=== PATIENT | female | born 1960 | race Caucasian/White ===

== ENCOUNTER 2022-05-25 23:18 | Observation (INO) ==
[2022-05-25] MEDS ORDERED: fentaNYL citrate 100 MCG/2 ML VIAL ONE ×2 (23:35→23:41)
[2022-05-25] MEDS ORDERED: ONDANSETRON INJ 2 MG/ML 2 ML VIAL ONE (23:35)
[2022-05-26] MEDS ORDERED: MIDAZOLAM HCL 5 MG/ML 1 ML VIAL IV STA
[2022-05-26] MEDS ORDERED: ETOMIDATE 2 MG/ML 20 ML VIAL IV ONE
[2022-05-26 00:42] LABS: Basophils # (auto) 0.07 K/uL (0-0.2); Basophils % (auto) 0.4 %; Eosinophils # (auto) 0.08 K/uL (0-0.50); Eosinophils % (auto) 0.4 %; Hematocrit (blood only) 37.7 % (34.1-44.9); Hemoglobin 13.2 g/dl (12.0-16.0); Immature Granulocytes # (auto) 0.12 K/uL (0.00-0.02); Immature Granulocytes % (auto) 0.7 %; Lymphocytes # (auto) 3.71 K/uL (1.2-3.4); Lymphocytes % (auto) 20.5 %; Mean Corpuscular Hemoglobin 30.6 pg (25.0-34.0); Mean Corpuscular Volume 87.3 fL (80.0-100.0); Monocytes # (auto) 1.22 K/uL (0.24-0.82); Monocytes % (auto) 6.7 %; Neutrophils # (auto) 12.89 K/uL (1.4-6.5); Neutrophils % (auto) 71.3 %; Platelet Count 277 K/uL (130-400); RDW Coefficient of Variation 12.3 % (11.5-14.5); RDW Standard Deviation 39.5 fL (36.4-46.3); Red Blood Count 4.32 M/uL (3.93-5.22); White Blood Count 18.09 K/ul (4.8-10.8)
--- NOTE | 2022-05-26 01:01 | Orthopedic Consultation ---
Date of Service May 26, 2022 Assessment & Plan (1) Trimalleolar fracture of right ankle: A closed reduction was done in the emergency room. Postreduction films revealed to be a well reduced and located. She will be admitted to the medicine service and medically optimized and plan on fixing this tomorrow. Risk and benefits were explained and the patient understands and desires to proceed. Informed consent was obtained. Meantime we will elevate this. I am going to get a CT scan to see if there is any other reason why this is so unstable. History of Present Illness Reason for Consultation: . Left ankle injury. Requesting Physician: . Attending Physician: 61-year-old female who tripped over her dog earlier this evening. She had cute onset of pain and deformity to her ankle. She brought the emergency room where x-rays revealed a trimalleolar ankle fracture dislocation. The ER staff could not get this reduced. I was called in to reduce this and take care of the patient. No pre-existing ankle problems. No other medical problems or ankle problems. . 61-year-old female who tripped over her dog earlier this evening. She had cute onset of pain and deformity. She brought the emergency room x-rays revealed a femoral ankle fracture dislocation. The ER staff was unable to relocate this. There was called to reduce the fracture and treat the patient. That she be admitted by the medicine service. Allergies Allergy/AdvReac Type Severity Reaction Status Date / Time No Known Allergies Allergy Unverified 12/03/09 17:43 Home Medications Medication Instructions Recorded Confirmed Type Calcium (Caltrate) 600 mg PO BID ##0 12/03/09 01/17/21 History ALENDRONATE SODIUM (FOSAMAX) 70 mg PO WK #0 tabs 07/20/13 01/17/21 History Albuterol (Proair Hfa) 2 puff inhalation Q4H PRN WHEEZING 07/20/13 01/17/21 History ##0 FLUTICASONE PROPIONATE (NASAL) 2 spry REY DAILY PRN ##0 07/20/13 01/17/21 History (FLONASE) Ibuprofen (Motrin) 600 mg PO TID #0 tabs 07/20/13 01/17/21 History LORAZEPAM (ATIVAN) 1 mg PO TID PRN ANXIETY #0 tabs 07/20/13 01/17/21 History hydrocodone 5 mg-acetaminophen 325 1 tab PO Q6H PRN pain #10 tabs 01/15/21 Rx mg tablet hydrocodone 5 mg-acetaminophen 325 1 tab PO Q6H PRN pain #30 tabs 01/20/21 Rx mg tablet Past Med/Surg History Medical History (Updated 05/26/22 @ 01:00 by Aram Kumari MD) HTN (hypertension) Stroke Trimalleolar fracture of right ankle Surgical History H/O: hysterectomy Social History Smoking Status: Never smoker Preferred Language: Telugu Feels Safe at Home: Yes Review of Systems All systems reviewed & are unremarkable except as noted in HPI & below. Physical Exam . Physical examination of the right ankle reveals an obvious deformity. Moderate soft tissue envelope. The skin is closed but the medial malleolus area is tented. She can slightly flex extend her toes appropriately. She is got brisk refill. She is neurologically intact otherwise. Results & Data Results & Data Laboratory Results . Diagnostic Findings . X-rays of the right ankle reveal right trimalar ankle fracture dislocation. Fairly significant comminution of the fibula. PG Care Time/CCT Total # of Minutes Spent Total Time Spent with Patient: Total time spent is greater than 50% in coordination of care (as documented) at patient's floor/unit and/or counseling patient: Coding Level of Care Code 91410 Inpt Consult Level 5 Diagnoses Trimalleolar fracture of right ankle S82.851A
[2022-05-26 01:04] LABS: Alanine Aminotransferase 20 U/L (7-52); Albumin Level 4.8 gm/dl (3.4-5.0); Alkaline Phosphatase 80 U/L (34-104); Anion Gap 11 (3-11); Aspartate Aminotransferase 24 U/L (13-39); BUN Creatinine Ratio 33.8 (10-20); Bilirubin,Total 0.4 mg/dl (0.2-1.0); Blood Urea Nitrogen 27 mg/dl (6-23); Calcium 10.2 mg/dl (8.5-10.1); Carbon Dioxide 23 mmol/L (21-32); Chloride 105 mmol/L (98-107); Est GFR (African American) 90.9 ml/min; Est GFR (Non-African American) 78.5 ml/min; Globulin 2.4 gm/dl (2.5-4.0); Glucose 114 mg/dl (70-99(Fasting)); Magnesium 1.8 mg/dl (1.7-2.4); Potassium 3.7 mmol/L (3.5-5.1); Sodium 139 mmol/L (136-145); Total Protein 7.2 gm/dl (6.0-8.3)
[2022-05-26] MEDS ORDERED: LACTATED RINGER'S 1,000 ML IV ONE (01:18)
[2022-05-26] MEDS ORDERED: lisinopril 10 MG TAB PO ONE (01:18)
--- NOTE | 2022-05-26 01:20 | History & Physical Report ---
Date of Service May 26, 2022 Assessment & Plan (1) Trimalleolar fracture of right ankle: Plan: Secondary to mechanical fall Hypertensive urgency secondary to pain/anxiety Past history CVA (2008), patient noncompliant with home aspirin hx COPD, lung status at baseline history of DVT as per records Hyperglycemia rule out DM past tobacco abuse Medical telemetry given uncontrolled BP Analgesia Titrate home BP meds, hold home diuretic while patient n.p.o. Orthopedics consult Re: Right ankle fracture (Patient already seen by Dr. Kumari at the ER. Surgery contemplated this AM.) Acceptable risk for cardiac complications resulting from prospective procedure Revised Cardiac Risk Index (RCRI): 1. High-risk type of surgery (examples include vascular and any open intraperitoneal or intrathoracic procedures). No 2. History of ischemic heart disease (history of myocardial infarction or positive exercise test, current compliant of chest pain considered to be secondary to myocardial ischemia, use of nitrate therapy, or ECG with pathological Q waves; do not count prior coronary revascularization procedure unless one of the other criteria for ischemic heart disease is present). No 3. History of heart failure. No 4. History of cerebrovascular disease. Yes 5. Diabetes mellitus requiring treatment with insulin. No 6. Preoperative serum creatinine >2.0. No Pt has revised cardiac index score of 1 points. (Class II Risk.) 6 % 30-day risk of , [place], or cardiac arrest. Resume home aspirin postop for secondary stroke prevention Check hemoglobin A1c DVT prophylaxis. SCDs for now Re: Procedure in a.m. Recommend pharmacologic anticoagulation once bleeding risk is deemed to be minimal and negligible pending Orthopedics follow-up evaluation given past history DVT. Text document was generated using [employer] voice recognition software. It may contain grammatical or spelling errors. Kindly contact undersigned for clarification of any documentation item in question. History of Present Illness Chief Complaint: Fall, right ankle pain Primary Care Provider: Crystal Rosa MD History obtained from patient, family, and records. Medical history significant for CVA (2008), COPD, hypertension, history of DVT as per records, anxiety/mood disorder, past tobacco abuse. Last night, patient was pulled by her daughter's dogs while she was walking them. Patient lost her balance falling on her right leg. Patient heard something crack. Excruciating right ankle pain and trouble getting up. No head trauma. No chest pain, no SOB, no LOC, no syncope. Patient brought to the ER by family for evaluation. Unsuccessful closed reduction of right ankle fracture at the ER. SBP 190s upon arrival at the ER. Medical History as above Surgical History : Laparoscopic inguinal hernia repair, cataract surgery, RITA, umbilical hernia repair Family History : DM, heart disease Personal/Social history : Past tobacco abuse, occasional EtOH intake, [employer] driver Allergies Allergy/AdvReac Type Severity Reaction Status Date / Time No Known Allergies Allergy Unverified 05/26/22 01:20 Home Medications Medication Instructions Recorded Confirmed Type albuterol sulfate 90 mcg/actuation 2 puff inhalation QID PRN 05/26/22 05/26/22 History aerosol inhaler Shortness Of Breath Or Wheezing aspirin 81 mg tablet,delayed 81 mg PO DAILY 05/26/22 05/26/22 History release clobetasol 0.05 % topical cream 1 applic topical DIRECTED PRN 05/26/22 05/26/22 History flare ups diphenhydramine HCl 25 mg tablet 50 mg PO BID PRN Itching 05/26/22 05/26/22 History (Benadryl Allergy) fluticasone propionate 50 2 spray intranasal DAILY PRN Nasal 05/26/22 05/26/22 History mcg/actuation nasal Congestion spray,suspension (Flonase Allergy Relief) gabapentin 100 mg capsule 200 mg PO TID 05/26/22 05/26/22 History hydrochlorothiazide 12.5 mg capsule 12.5 mg PO DAILY 05/26/22 05/26/22 History lisinopril 5 mg tablet 5 mg PO DAILY 05/26/22 05/26/22 History lorazepam 0.5 mg tablet 0.5 mg PO TID PRN Anxiety 05/26/22 05/26/22 History naproxen sodium 220 mg tablet 220 mg PO BID PRN Pain 05/26/22 05/26/22 History (Aleve) rosuvastatin 5 mg tablet 5 mg PO QAM 05/26/22 05/26/22 History trazodone 50 mg tablet 50 - 100 mg PO HS PRN Sleep 05/26/22 05/26/22 History zoledronic acid 5 mg/100 mL in 1 ea IV YEARLY 05/26/22 05/26/22 History mannitol 5 %-water intravenous piggybck (Reclast) Past Med/Surg History Medical History HTN (hypertension) Stroke Trimalleolar fracture of right ankle Surgical History H/O: hysterectomy Social History Smoking Status: Never smoker Hx Alcohol Use: Yes Alcohol type: beer Hx Substance Use: No Preferred Language: Turkmen [employer] Required: No Beliefs That Will Affect Care: None Current Living Situation: Spouse Feels Safe at Home: Yes Assistive Devices: None Review of Systems Review of Systems: As per HPI, all other systems reviewed and negative Physical Exam Physical Exam: GENERAL: Slightly uncomfortable, no respiratory distress SKIN: Normal color, warm HEENT: Pine palpebral conjunctivae, no ptosis, dry buccal mucosa NECK : Supple, no tenderness CHEST : Decreased breath sounds , no tenderness HEART : Tachycardic, no obvious murmurs ABDOMEN: Some distention, nontender EXTREMITIES : RLE splint, minimal LE swelling, no LLE tenderness NEUROLOGIC : Coherent, no facial asymmetry, no other gross focality Results & Data Results & Data ([facility]) Vital Signs (Past 12 Hours) Vital Signs Temp Pulse Resp BP Pulse Ox O2 Del Method O2 Flow Rate 05/26/22 00:29 109 H 20 162/90 H 98 Nasal Cannula 2 05/25/22 23:46 125 H 26 H 193/100 H 97 Room Air 05/25/22 23:26 36.6 C 110 H 20 193/110 H 98 Room Air Laboratory Results Laboratory Results WBC 18.09 K/ul (4.8-10.8) H 05/25/22 23:41 RBC 4.32 M/uL (3.93-5.22) 05/25/22 23:41 Hgb 13.2 g/dl (12.0-16.0) 05/25/22 23:41 Hct 37.7 % (34.1-44.9) 05/25/22 23:41 MCV 87.3 fL (80.0-100.0) 05/25/22 23:41 MCH 30.6 pg (25.0-34.0) 05/25/22 23:41 MCHC 35.0 g/dL (32.0-36.0) 05/25/22 23:41 RDW Std Deviation 39.5 fL (36.4-46.3) 05/25/22 23:41 RDW Coeff of Sampson 12.3 % (11.5-14.5) 05/25/22 23:41 Plt Count 277 K/uL (130-400) 05/25/22 23:41 MPV 11.0 fL (9.4-12.3) 05/25/22 23:41 Immature Gran % (Auto) 0.7 % 05/25/22 23:41 Neut % (Auto) 71.3 % 05/25/22 23:41 Lymph % (Auto) 20.5 % 05/25/22 23:41 Moca % (Auto) 6.7 % 05/25/22 23:41 Eos % (Auto) 0.4 % 05/25/22 23:41 Baso % (Auto) 0.4 % 05/25/22 23:41 Neut # (Auto) 12.89 K/uL (1.4-6.5) H 05/25/22 23:41 Lymph # (Auto) 3.71 K/uL (1.2-3.4) H 05/25/22 23:41 Moca # (Auto) 1.22 K/uL (0.24-0.82) H 05/25/22 23:41 Eos # (Auto) 0.08 K/uL (0-0.50) 05/25/22 23:41 Baso # (Auto) 0.07 K/uL (0-0.2) 05/25/22 23:41 Immature Gran # (Auto) 0.12 K/uL (0.00-0.02) H 05/25/22 23:41 Sodium 139 mmol/L (136-145) 05/25/22 23:41 Potassium 3.7 mmol/L (3.5-5.1) 05/25/22 23:41 Chloride 105 mmol/L (98-107) 05/25/22 23:41 Carbon Dioxide 23 mmol/L (21-32) 05/25/22 23:41 Anion Gap 11 (3-11) 05/25/22 23:41 BUN 27 mg/dl (6-23) H 05/25/22 23:41 Creatinine 0.80 mg/dl (0.6-1.2) 05/25/22 23:41 Est Cr Clr Drug Dosing Not Reportable 05/25/22 23:41 Est GFR ( Amer) 90.9 ml/min 05/25/22 23:41 Est GFR (Non-Af Amer) 78.5 ml/min 05/25/22 23:41 BUN/Creatinine Ratio 33.8 (10-20) H 05/25/22 23:41 Glucose 114 mg/dl (70-99(Fasting)) H 05/25/22 23:41 Calcium 10.2 mg/dl (8.5-10.1) H 05/25/22 23:41 Magnesium 1.8 mg/dl (1.7-2.4) 05/25/22 23:41 Total Bilirubin 0.4 mg/dl (0.2-1.0) 05/25/22 23:41 AST 24 U/L (13-39) 05/25/22 23:41 ALT 20 U/L (7-52) 05/25/22 23:41 Alkaline Phosphatase 80 U/L (34-104) 05/25/22 23:41 Total Protein 7.2 gm/dl (6.0-8.3) 05/25/22 23:41 Albumin 4.8 gm/dl (3.4-5.0) 05/25/22 23:41 Globulin 2.4 gm/dl (2.5-4.0) L 05/25/22 23:41 Albumin/Globulin Ratio 2.0 (0.9-2) 05/25/22 23:41 TSH 1.543 uIu/ml (0.300-4.500) 05/25/22 23:41 SARS-CoV-2, RNA, NAAT NEGATIVE (NEGATIVE) 05/26/22 00:[address] right ankle initial read: Trimalleolar fracture, as detailed below. Comminuted and mildlydisplaced distal fibula fracture at the level of the tibial plafond and extending cephalad. Mildlydisplaced medial malleolus fracture. Mildlydisplaced and comminuted pos terior malleolus fracture Chest x-ray as per my interpretation borderline cardiomegaly, atelectasis EKG as per my interpretation :Rate 90, NSR, normal axis, T wave abnormalities inferior leads, PACs (1) Trimalleolar fracture of right ankle Encounter type: initial encounter Fracture type: closed Qualified Code(s): S82.851A - Displaced trimalleolar fracture of right lower leg, initial encounter for closed fracture
[2022-05-26] MEDS ORDERED: traMADol HCL 50 MG TABLET PO PRN ×2 (01:25→13:07)
[2022-05-26] MEDS ORDERED: LORazepam 0.5 MG TAB PO PRN ×2 (01:25→13:07)
[2022-05-26] MEDS ORDERED: PROMETHAZINE HCL 12.5 MG in SODIUM CHLORIDE 0.9% 50 ML IV PRN (01:25)
[2022-05-26] MEDS ORDERED: MoRPHine SULFATE 4 MG/ML 1 ML CARP\\VIAL IV PRN (01:25)
[2022-05-26] MEDS ORDERED: traZODone HCL 50 MG TAB PO PRN (02:40)
[2022-05-26] MEDS ORDERED: MAGNESIUM SULFATE / D5W 1 GM/100 ML BAG IV ONE (02:45)
[2022-05-26] MEDS ORDERED: POTASSIUM CHLORIDE CRTAB 20 MEQ TABCR PO STA (02:45)
--- NOTE | 2022-05-26 06:55 | Emergency Department Note ---
History of Present Illness General Chief complaint: Fall Stated complaint: FALL, RLE PAIN History of Present Illness Maximum Pain Intensity: 3 This 61-year-old presents to the ER complaining of right lower leg pain with obvious ankle dislocation with absent pedal pulses Location: Right lower leg Quality: Painful Severity: Severe Duration: Tonight Timing: Patient tripped while taking the dog out Context: Patient was in pain and came in Modifying factors: better with rest; worse with activity Patient was brought in to B1 and I was called to the room. I was unable to obtain a pedal pulse and patient's foot was dusky. I immediately called my attending and we tried to attempt to reduce the unstable fracture with vascular compromise. We are able to reduce the ankle somewhat to get a pulse and Ortho was called in. Patient denies chest pain, dyspnea, knee pain prior fracture to the area. She states she can feel her toes. She had 1 beer tonight. No other alcohol or drug use Home Medications Medication Instructions Recorded Confirmed Type albuterol sulfate 90 mcg/actuation 2 puff inhalation QID PRN 05/26/22 05/26/22 History aerosol inhaler Shortness Of Breath Or Wheezing aspirin 81 mg tablet,delayed 81 mg PO DAILY 05/26/22 05/26/22 History release clobetasol 0.05 % topical cream 1 applic topical DIRECTED PRN 05/26/22 05/26/22 History flare ups diphenhydramine HCl 25 mg tablet 50 mg PO BID PRN Itching 05/26/22 05/26/22 History (Benadryl Allergy) fluticasone propionate 50 2 spray intranasal DAILY PRN Nasal 05/26/22 05/26/22 History mcg/actuation nasal Congestion spray,suspension (Flonase Allergy Relief) gabapentin 100 mg capsule 200 mg PO TID 05/26/22 05/26/22 History hydrochlorothiazide 12.5 mg capsule 12.5 mg PO DAILY 05/26/22 05/26/22 History lisinopril 5 mg tablet 5 mg PO DAILY 05/26/22 05/26/22 History lorazepam 0.5 mg tablet 0.5 mg PO TID PRN Anxiety 05/26/22 05/26/22 History naproxen sodium 220 mg tablet 220 mg PO BID PRN Pain 05/26/22 05/26/22 History (Aleve) rosuvastatin 5 mg tablet 5 mg PO QAM 05/26/22 05/26/22 History trazodone 50 mg tablet 50 - 100 mg PO HS PRN Sleep 05/26/22 05/26/22 History zoledronic acid 5 mg/100 mL in 1 ea IV YEARLY 05/26/22 05/26/22 History mannitol 5 %-water intravenous piggybck (Reclast) Allergies Allergy/AdvReac Type Severity Reaction Status Date / Time No Known Allergies Allergy Unverified 05/26/22 01:20 Past Med/Surg History Medical History HTN (hypertension) Stroke Trimalleolar fracture of right ankle Surgical History H/O: hysterectomy Social History Smoking Status: Never smoker Hx Alcohol Use: Yes Alcohol type: beer Hx Substance Use: No Preferred Language: Omani Communication Ability: Effective Technologist Development Required: No Beliefs That Will Affect Care: None marital status: Current Living Situation: Spouse How many Children do You have: 4 Feels Safe at Home: Yes Assistive Devices: None Review of Systems A total of 10 systems reviewed and were otherwise negative Physical Exam Vital Signs Vital Signs - 24 hr 05/25/22 23:26 05/25/22 23:46 05/26/22 00:29 Temperature 36.6 C Temperature Source Temporal Artery Scan Pulse Rate 110 H 125 H 109 H Pulse Rate from SpO2 Sensor 110 H Respiratory Rate 20 26 H 20 Blood Pressure 193/110 H 193/100 H 162/90 H Blood Pressure Mean 137 131 114 Pulse Oximetry 98 97 98 Oxygen Delivery Method Room Air Room Air Nasal Cannula Oxygen Flow Rate 2 Sepsis Recent Fever Within 48 Hours No Sepsis New/Unexplained Change in Mental Status N/A Sepsis Action Taken by Nursing No Action Required End-Tidal CO2 34 05/26/22 00:54 05/26/22 01:00 Temperature Temperature Source Pulse Rate 110 H 103 H Pulse Rate from SpO2 Sensor 108 H 102 H Respiratory Rate 17 26 H Blood Pressure 128/81 139/81 Blood Pressure Mean 96 100 Pulse Oximetry 96 96 Oxygen Delivery Method Room Air Room Air Oxygen Flow Rate Sepsis Recent Fever Within 48 Hours Sepsis New/Unexplained Change in Mental Status Sepsis Action Taken by Nursing End-Tidal CO2 VITALS: Vitals are noted on the nurse's note and reviewed by myself. Vital signs stable. GENERAL: Pleasant female who appears in pain with obvious ankle dislocation, in no acute distress, nondiaphoretic, well-developed well-nourished. SKIN: Right foot dusky with obvious fracture tenting the skin, the rest of the skin was without rashes, erythema, edema, or bruising. There is no tenting of the skin. Capillary reflex less than 2 seconds. HEAD: Normocephalic atraumatic. EARS: External auditory canals clear, EYES: Pupils equal round and reactive to light and accommodation. Conjunctivae without injection, sclerae without icterus. Extraocular movements intact. NOSE: Patent, turbinates without inflammation or discharge. MOUTH: Mucous membranes moist. Pharynx without erythema or exudate. Uvula midline. Airway patent. Tongue does not deviate. NECK: Supple without nuchal rigidity. No lymphadenopathy. No thyromegaly. Cervical spine is nontender. No JVD. HEART: Regular rate and rhythm LUNGS: Clear to auscultation bilaterally without wheezes, rales or rhonchi. No retractions or accessory muscle use. ABDOMEN: Positive bowel sounds x 4. Normal tympanic percussion. Soft, nontender, without masses or organomegaly. Kumar sign negative. No guarding or rebound tenderness. No CVA tenderness MUSCULOSKELETAL: No muscle atrophy noted. Right ankle with obvious unstable fracture with absent pedal pulse with dusky foot. Knee and abbasi nontender to palpation. NEURO: Patient was alert and oriented to person place and time. Normal sensation to light and sharp touch. No focal neurological deficits. Course Administered Medications Acetaminophen (Acetaminophen 500 Mg Tab) 1,000 mg PO Q8 [facility] Stop: 06/25/22 13:59 Last Admin: 05/26/22 21:15 Dose: 1,000 mg Documented By: Admin: 05/26/22 13:36 Dose: 1,000 mg Documented By: EDMUND Aspirin (Aspirin 81 Mg Ectab) 81 mg PO BID [facility] Stop: 06/25/22 20:59 Last Admin: 05/26/22 20:12 Dose: 81 mg Documented By: WAYNE Docusate Sodium (Docusate Sodium 100 Mg Cap) 100 mg PO BID [facility] Stop: 06/25/22 20:59 Last Admin: 05/26/22 20:12 Dose: 100 mg Documented By: WAYNE Gabapentin (Gabapentin 100 Mg Cap) 200 mg PO TID [place] Stop: 06/25/22 08:59 Last Admin: 05/26/22 21:15 Dose: 200 mg Documented By: Admin: 05/26/22 13:36 Dose: 200 mg Documented By: Admin: 05/26/22 07:24 Dose: 200 mg Documented By: SURINDER Ketorolac Tromethamine (Ketorolac 30 Mg/Ml Vial) 30 mg IV Q6 [place] Stop: 05/28/22 06:01 Last Admin: 05/27/22 00:59 Dose: 30 mg Documented By: Admin: 05/26/22 18:03 Dose: 30 mg Documented By: Admin: 05/26/22 13:36 Dose: 30 mg Documented By: EDMUND Morphine Sulfate (Morphine Sulfate 4 Mg/Ml 1 Ml Carp\Vial) 4 mg IV Q4H PRN PRN Reason: Pain Stop: 06/09/22 01:24 Last Admin: 05/26/22 02:09 Dose: 4 mg Documented By: LIZ Rosuvastatin Calcium (Rosuvastatin Calcium 5 Mg Tab) 5 mg PO QAM [place] Stop: 06/25/22 08:59 Last Admin: 05/26/22 07:24 Dose: 5 mg Documented By: SURINDER Sennosides (Senna 8.6 Mg Tab) 17.2 mg PO HS [facility] Stop: 06/25/22 20:59 Last Admin: 05/26/22 20:12 Dose: 17.2 mg Documented By: WAYNE Discontinued Medications Bupivacaine HCl (Bupivacaine 0.5 % 5 Mg/1 Ml Mpf 30ml Vial) Confirm Administered Dose 30 ml .ROUTE .STK-MED ONE Stop: 05/26/22 09:19 Last Admin: 05/26/22 10:55 Dose: 30 ml Documented By: RICARDO Epinephrine HCl (Epinephrine Inj 1 Mg/Ml Amp) Confirm Administered Dose 1 mg .ROUTE .STK-MED ONE Stop: 05/26/22 09:19 Last Admin: 05/26/22 10:56 Dose: 0.15 mg Documented By: RICARDO Etomidate (Etomidate 2 Mg/Ml 20 Ml Vial) 10 mg IV NOW ONE Stop: 05/26/22 00:01 Last Admin: 05/26/22 01:00 Dose: Not Given Documented By: LIZ Fentanyl Citrate (Fentanyl Citrate 100 Mcg/2 Ml Vial) Confirm Administered Dose 100 mcg .ROUTE .STK-MED ONE Stop: 05/25/22 23:36 Last Admin: 05/25/22 23:39 Dose: 100 mcg Documented By: LIZ Fentanyl Citrate (Fentanyl Citrate 100 Mcg/2 Ml Vial) Confirm Administered Dose 100 mcg .ROUTE .STK-MED ONE Stop: 05/25/22 23:42 Last Increment: 05/26/22 00:24 Dose: 50 mcg Documented By: LIZ Increment: 05/25/22 23:44 Dose: 50 mcg Documented By: LIZ Lactated Ringer's (Lr) 1,000 mls @ 60 mls/hr IV .[id number] ONE Stop: 05/26/22 17:57 Last Infusion: 05/26/22 13:21 Dose: 0 mls/hr Documented By: Infusion: 05/26/22 12:38 Dose: 0 mls/hr Documented By: Admin: 05/26/22 02:47 Dose: 60 mls/hr Documented By: CLARENCE Magnesium Sulfate/Dextrose (Magnesium Sulfate / D5w) 1 gm in 100 mls @ 50 mls/hr IV ONE ONE Stop: 05/26/22 04:44 Last Infusion: 05/26/22 05:04 Dose: 0 mls/hr Documented By: Admin: 05/26/22 02:53 Dose: 50 mls/hr Documented By: CLARENCE Cefazolin Sodium (Ancef 2000mg) 2,000 mg in 15 mls @ 3.75 mls/min IV PREOP ONE; Protocol Stop: 05/26/22 10:06 Last Admin: 05/26/22 09:35 Dose: 3.75 mls/min Documented By: SHOSHANA Sodium Chloride (Nss 1000ml) 1,000 mls @ 100 mls/hr IV .Q10H [place] Stop: 05/27/22 06:00 Last Admin: 05/27/22 01:16 EST Dose: Not Given Documented By: Infusion: 05/27/22 01:16 EST Dose: 100 mls/hr Documented By: Admin: 05/26/22 13:35 Dose: 100 mls/hr Documented By: EDMUND Cefazolin Sodium (Ancef 2000mg) 2,000 mg in 15 mls @ 3.75 mls/min IV Q8H [facility]; Protocol Stop: 05/27/22 01:33 EST Last Admin: 05/27/22 00:59 Dose: 3.75 mls/min Documented By: Admin: 05/26/22 18:03 Dose: 3.75 mls/min Documented By: EDMUND Lisinopril (Lisinopril 10 Mg Tab) 10 mg PO NOW ONE Stop: 05/26/22 01:19 Last Admin: 05/26/22 01:52 Dose: 10 mg Documented By: LIZ Midazolam HCl (Midazolam Hcl 5 Mg/Ml 1 Ml Vial) 10 mg IV NOW STA Stop: 05/26/22 00:01 Last Admin: 05/26/22 01:00 Dose: Not Given Documented By: LIZ Ondansetron HCl (Ondansetron Inj 2 Mg/Ml 2 Ml Vial) Confirm Administered Dose 4 mg .ROUTE .STK-MED ONE Stop: 05/25/22 23:36 Last Admin: 05/25/22 23:40 Dose: 4 mg Documented By: LIZ Potassium Chloride (Potassium Chloride Crtab 20 Meq Tabcr) 40 meq PO NOW STA Stop: 05/26/22 02:46 Last Admin: 05/26/22 02:53 Dose: 40 meq Documented By: CLARENCE Tramadol HCl (Tramadol Hcl 50 Mg Tablet) 25 - 50 mg PO Q4H PRN PRN Reason: Pain Stop: 06/25/22 01:24 Last Admin: 05/26/22 07:07 Dose: 50 mg Documented By: SURINDER Critical Care Time Critical Care Time: Yes Total Critical Care Time: 35 I have personally spent 35 minutes of critical care time in the direct management of this patient. This includes bedside care, interpretation of diagnostic studies, and testing, discussion with consultants, patient, and family members, and other required patient management activities. This 35 minutes is in excess of all separately billable procedures. Medical Decision Making Medical Records Attestation: I reviewed the patient's medical records. Home Medications Current Medication List: was personally reviewed by me Laboratory Data Attestation: I reviewed the patient's lab results. Result diagrams: 05/26/22 06:59 05/26/22 06:59 Lab Results 05/25/22 05/25/22 05/25/22 Range/Units 23:41 23:41 23:41 WBC 18.09 H (4.8-10.8) K/ul RBC 4.32 (3.93-5.22) M/uL Hgb 13.2 (12.0-16.0) g/dl Hct 37.7 (34.1-44.9) % MCV 87.3 (80.0-100.0) fL MCH 30.6 (25.0-34.0) pg MCHC 35.0 (32.0-36.0) g/dL RDW Std Deviation 39.5 (36.4-46.3) fL RDW Coeff of Sampson 12.3 (11.5-14.5) % Plt Count 277 (130-400) K/uL MPV 11.0 (9.4-12.3) fL Immature Gran % (Auto) 0.7 % Neut % (Auto) 71.3 % Lymph % (Auto) 20.5 % [place] % (Auto) 6.7 % Eos % (Auto) 0.4 % Baso % (Auto) 0.4 % Neut # (Auto) 12.89 H (1.4-6.5) K/uL Lymph # (Auto) 3.71 H (1.2-3.4) K/uL [place] # (Auto) 1.22 H (0.24-0.82) K/uL Eos # (Auto) 0.08 (0-0.50) K/uL Baso # (Auto) 0.07 (0-0.2) K/uL Immature Gran # (Auto) 0.12 H (0.00-0.02) K/uL Sodium 139 (136-145) mmol/L Potassium 3.7 (3.5-5.1) mmol/L Chloride 105 (98-107) mmol/L Carbon Dioxide 23 (21-32) mmol/L Anion Gap 11 (3-11) BUN 27 H (6-23) mg/dl Creatinine 0.80 (0.6-1.2) mg/dl Est Cr Clr Drug Dosing Not Reportable Est GFR ( Amer) 90.9 ml/min Est GFR (Non-Af Amer) 78.5 ml/min BUN/Creatinine Ratio 33.8 H (10-20) Glucose 114 H (70-99(Fasting)) mg/dl Calcium 10.2 H (8.5-10.1) mg/dl Magnesium 1.8 (1.7-2.4) mg/dl Total Bilirubin 0.4 (0.2-1.0) mg/dl AST 24 (13-39) U/L ALT 20 (7-52) U/L Alkaline Phosphatase 80 (34-104) U/L Total Protein 7.2 (6.0-8.3) gm/dl Albumin 4.8 (3.4-5.0) gm/dl Globulin 2.4 L (2.5-4.0) gm/dl Albumin/Globulin Ratio 2.0 (0.9-2) Procalcitonin (0-0.5) ng/ml TSH 1.543 (0.300-4.500) uIu/ml SARS-CoV-2, RNA, NAAT (NEGATIVE) 05/25/22 05/26/22 Range/Units 23:41 00:32 WBC (4.8-10.8) K/ul RBC (3.93-5.22) M/uL Hgb (12.0-16.0) g/dl Hct (34.1-44.9) % MCV (80.0-100.0) fL MCH (25.0-34.0) pg MCHC (32.0-36.0) g/dL RDW Std Deviation (36.4-46.3) fL RDW Coeff of Sampson (11.5-14.5) % Plt Count (130-400) K/uL MPV (9.4-12.3) fL Immature Gran % (Auto) % Neut % (Auto) % Lymph % (Auto) % [place] % (Auto) % Eos % (Auto) % Baso % (Auto) % Neut # (Auto) (1.4-6.5) K/uL Lymph # (Auto) (1.2-3.4) K/uL [place] # (Auto) (0.24-0.82) K/uL Eos # (Auto) (0-0.50) K/uL Baso # (Auto) (0-0.2) K/uL Immature Gran # (Auto) (0.00-0.02) K/uL Sodium (136-145) mmol/L Potassium (3.5-5.1) mmol/L Chloride (98-107) mmol/L Carbon Dioxide (21-32) mmol/L Anion Gap (3-11) BUN (6-23) mg/dl Creatinine (0.6-1.2) mg/dl Est Cr Clr Drug Dosing Est GFR ( Amer) ml/min Est GFR (Non-Af Amer) ml/min BUN/Creatinine Ratio (10-20) Glucose (70-99(Fasting)) mg/dl Calcium (8.5-10.1) mg/dl Magnesium (1.7-2.4) mg/dl Total Bilirubin (0.2-1.0) mg/dl AST (13-39) U/L ALT (7-52) U/L Alkaline Phosphatase (34-104) U/L Total Protein (6.0-8.3) gm/dl Albumin (3.4-5.0) gm/dl Globulin (2.5-4.0) gm/dl Albumin/Globulin Ratio (0.9-2) Procalcitonin < 0.05 (0-0.5) ng/ml TSH (0.300-4.500) uIu/ml SARS-CoV-2, RNA, NAAT NEGATIVE (NEGATIVE) Imaging Data Attestation: I personally reviewed and interpreted this imaging study as follows: Radiologist's Impression: Ankle X-Ray 05/26/22 00:00 FL ankle RT 2V CLINICAL HISTORY: CLOSED REDUCTION RIGHT ANKLE TECHNIQUE: 2 views were obtained with the C-arm in the OR with the above proce dure. Total fluoroscopy time was 7 seconds. Comparison: None available at the time of this dictation. FINDINGS/IMPRESSION: Intraoperative images were obtained of closed reduction of the right ankle fracture. Please correlate with intraoperative fluoroscopy and operative report. ACT 112: Negative or not required by law. Electronically signed by: Kenan Monte M.D. 05/26/2022 9:16 AM Ankle X-Ray 05/26/22 00:00 FL ankle RT min 3V RTN CLINICAL HISTORY: ORIF RT ANKLE TECHNIQUE: 4 views were obtained with the C-arm in the OR with the above procedure. Total fluoroscopy time was 13 seconds. Comparison: Comparison is made to CT ankle 05/26/2022 FINDINGS/IMPRESSION: Intraoperative images were obtained of both reduction internal fixation of the right ankle. Please correlate with intraoperative fluoroscopy and operative report. ACT 112: Negative or not required by law. Electronically signed by: Kenan Monte M.D. 05/26/2022 10:56 AM Ankle X-Ray 05/26/22 00:29 XR ankle RT 2V CLINICAL HISTORY: ankle pain TECHNIQUE: 2 views of the right ankle were obtained. Comparison: None available at the time of this dictation. FINDINGS: Trimalleolar fractures are seen. There is widening of the ankle mortise. Soft tissue swelling is seen about the ankle. IMPRESSION: Trimalleolar fracture with widening of the ankle mortise and associated soft tissue swelling. ACT 112: Negative or not required by law. Electronically signed by: Kenan Monte M.D. 05/26/2022 9:[address] 05/26/22 00:56 CT ankle RT wo con CLINICAL HISTORY: RIGHT ANKLE FX TECHNIQUE: Multidetector row helical CT of the right ankle was performed without intravenous contrast. Coronal and sagittal reformations were obtained. Automated dose lowering techniques and/or adjustment according to patient size were utiliz ed for this examination. CT DOSE: 564.34 mGy.cm Comparison: Comparison is made to right ankle radiographs 06/05/2022 and 06/04/2022 FINDINGS: Comminuted trimalleolar fracture is seen. The bones of the foot appear intact. The ankle joint is now in anatomic alignment. Soft tissue swelling is seen about the ankle. IMPRESSION: Trimalleolar fracture with surrounding soft tissue swelling. Following closed reduction, the fracture fragments and ankle joint are in near-anatomic alignment. ACT 112: Negative or not required by law. Electronically signed by: Kenan Monte M.D. 05/26/2022 9:21 AM Ankle X-Ray 05/26/22 01:05 XR ankle RT min 3V routine CLINICAL HISTORY: post reduction TECHNIQUE: 3 views of the right ankle were obtained. Comparison: Comparison is made to ankle radiograph 05/25/2022 FINDINGS: Following closed reduction, there is interval significant improvement in alignment of the fracture fragments. The ankle mortise is only minimally widened . A overlying cast limits fine bony detail. Soft tissue swelling is seen about the ankle. IMPRESSION: Following closed reduction, significant improvement of alignment of fracture fragments. Associated soft tissue swelling is seen. ACT 112: Negative or not required by law. Electronically signed by: Kenan Monte M.D. 05/26/2022 9:17 AM MDM Narrative Prior records reviewed and summarized above. Triage Nursing notes reviewed. Additional history obtained from the family. The patient's history was concerning for swelling and pain in the leg. Differential diagnosis: Etiologies such as vascular compromise, DVT, musculoskeletal, infection, joint effusion, trauma, lymphedema, idiopathic, as well as others were entertained.. Physical examination: The physical examination revealed no signs of infection. Neurovascularly intact. ER treatment provided: An order was placed for continuous cardiac monitoring. The monitor shows a rate of 60-150 with a sinus rhythm. Fentanyl, Zofran, IV fluids On reassessment the patient felt better. Diagnostics interpreted by me: The labs revealed stable H&H Imaging studies: Ankle x-ray with unstable trimalleolar fracture with talus dislocation per my interpretation Patient gave verbal consent and I attempted to reduce the ankle with inline traction as patient had absent pulse. Pulse was reobtained but the ankle was extremely unstable. My attending and myself did try to reduce the ankleand were unsuccessful. Orthopedics was consulted. Consultation: A consultation was placed with the orthopedist Dr. Kumari and he came in to reduce the unstable fracture. Hospitalist was consulted. The case was discussed and diagnostics were reviewed. The patient was evaluated in the ER for further treatment. This appears to be consistent with trimalleolar fracture with vascular compromise of the right ankle. Patient was emergently brought into B1. Patient was given pain meds and labs are drawn. Patient had a diminished versus abscess pedis pulse emergent reduction was attempted. Pulse was obtained and patient had an unstable fracture. I consulted orthopedics and Dr. Kumari came in to help reduce the ankle and to cast the leg. Medicine was consulted and will admit the patient. Patient was reassessed multiple times by the evaluation outlined above emergent etiologies such as DVT, septic joint, infection, CHF, as well as others were deemed relatively unlikely. The pt informed about the findings as listed above. All questions were answered and pleased with the treatment. The chart was completed utilizing [employer] Speech voice recognition software. Grammatical errors, random word insertions, pronoun errors, and incomplete sentences are an occassional consequence of this system due to software limitations, ambient noise, and hardware issues. Any formal questions or concerns about the content, text, or information contained within the body of this dictation should be directly addressed to the physician distribution center assistant for clarification. Impression & Plan Trimalleolar fracture of right ankle, Closed dislocation of right ankle Discharge Plan Visit Data Chief Complaint: Fall Stated Complaint: FALL, RLE PAIN ED Provider: Sly Lopez ED Midlevel Provider: Zenaida Gonzalez Discharge Problem: Trimalleolar fracture of right ankle, Closed dislocation of right ankle Patient Disposition: Admitted As Inpatient Condition: Fair Discharge Instructions Interventions: ED Discharge Assessment Last Done: 05/26/22 02:16 : Trimalleolar fracture of right ankle Qualifiers: Encounter type: initial encounter Fracture type: closed Qualified Code(s): S82.851A - Displaced trimalleolar fracture of right lower leg, initial encounter for closed fracture
--- NOTE | 2022-05-26 07:04 | Emergency Department Note ---
ED Visit Note Patient was seen with the SOL I was called to the room as the patient had had very obvious deformity of the right ankle and rib's of pulses. Patient had been given IV fentanyl and multiple attempts of trying to reduce the trimalleolar fracture with mortise disruption and dislocation were unsuccessful in various positions including flexion of the knee. Initial attempts the patient could tolerate and the ankle was able to be moved however it was not completely reduced. This prompted the physician assistant golf professional to call the on-call orthopedic surgeon for assistance. . : Trimalleolar fracture of right ankle Qualifiers: Encounter type: initial encounter Fracture type: closed Qualified Code(s): S82.851A - Displaced trimalleolar fracture of right lower leg, initial encounter for closed fracture
[2022-05-26 07:12] LABS: Basophils # (auto) 0.04 K/uL (0-0.2); Basophils % (auto) 0.3 %; Eosinophils # (auto) 0.02 K/uL (0-0.50); Eosinophils % (auto) 0.2 %; Hematocrit (blood only) 34.3 % (34.1-44.9); Hemoglobin 11.9 g/dl (12.0-16.0); Immature Granulocytes # (auto) 0.05 K/uL (0.00-0.02); Immature Granulocytes % (auto) 0.4 %; Lymphocytes # (auto) 2.46 K/uL (1.2-3.4); Lymphocytes % (auto) 21.2 %; Mean Corpuscular Hemoglobin 30.6 pg (25.0-34.0); Mean Corpuscular Hgb Conc 34.7 g/dL (32.0-36.0); Mean Corpuscular Volume 88.2 fL (80.0-100.0); Mean Platelet Volume 10.2 fL (9.4-12.3); Monocytes # (auto) 1.04 K/uL (0.24-0.82); Neutrophils # (auto) 7.99 K/uL (1.4-6.5); Neutrophils % (auto) 68.9 %; Platelet Count 215 K/uL (130-400); RDW Coefficient of Variation 12.6 % (11.5-14.5); RDW Standard Deviation 39.9 fL (36.4-46.3); Red Blood Count 3.89 M/uL (3.93-5.22)
[2022-05-26] MEDS: GABAPENTIN 100 MG CAP PO SCH ×3 (07:24→21:15)
[2022-05-26] MEDS: ROSUVASTATIN CALCIUM 5 MG TAB PO SCH (07:24)
[2022-05-26 07:42] LABS: BUN Creatinine Ratio 31.7 (10-20); Calcium 8.8 mg/dl (8.5-10.1); Creatinine Clr Calc Pharmacy 84.8 ml/min; Est GFR (African American) 112.4 ml/min
--- NOTE | 2022-05-26 08:32 | History & Physical Bridge Note ---
Date of Service May 26, 2022 History & Physical Bridge Note I have examined the patient, reviewed the History & Physical and in the interval since the performance of the History & Physical I have noted the following changes of clinical significance: no changes noted
[2022-05-26] MEDS ORDERED: BUPIVACAINE 0.5 % 5 MG/1 ML MPF 30ML VIAL ONE ×2 (08:36→09:18)
[2022-05-26] MEDS ORDERED: BUPIVACAINE 0.5 % 5 MG/1 ML PF 10ML VIAL ONE (08:36)
[2022-05-26] MEDS ORDERED: LIDOCAINE 2% 2 ML VIAL/AMP(20MG/ML) INFIL ONE (08:49)
[2022-05-26] MEDS ORDERED: fentaNYL citrate 100 MCG/2 ML VIAL ONE (08:49)
[2022-05-26] MEDS ORDERED: PROPOFOL IV EMULSION 10 MG/ML 20 ML VIAL IV ONE (08:49)
[2022-05-26] MEDS ORDERED: DEXAMETHASONE SOD INJ 4 MG/ML VIAL ONE (08:49)
[2022-05-26] MEDS ORDERED: MIDAZOLAM HCL 1 MG/ML 2ML VIAL ONE (08:49)
[2022-05-26] MEDS ORDERED: ONDANSETRON INJ 2 MG/ML 2 ML VIAL ONE (08:49)
--- NOTE | 2022-05-26 08:52 | Progress Notes ---
DATE OF SERVICE: 05/26/2022. SUBJECTIVE: A 61-year-old female admitted last evening with a severe unstable ankle fracture disloca tion. She is doing pretty well this morning. A little bit more pain, but manageable. Much improved. She is in a cast. Waiting for surgery. No new complaints. OBJECTIVE: VITAL SIGNS: Temperature 36.8. Vital signs are stable. GENERAL: Shows a pleasant middle-aged female. She is sitting up in bed and looks pretty comfortable . EXTREMITIES: Examination of the right ankle reveals the cast to be in place. A fairly minimal toe s welling. She can flex and extend her toes without much pain. She is neurologically intact. CT SCAN: CT scan shows a fairly comminuted fibula fracture. Fairly large medial malleolus fracture. Ankle is well located. A small posterior malleolus fracture. ASSESSMENT: A 61-year-old female with an unstable ankle fracture dislocation, waiting for surgery. Pain is controlled. PLAN: When taken to the operating room today, we will do an ORIF. Based on the stability of this, w e may or may not place an external fixator, but I think it unlikely. The risks and benefits were exp lained and she understands and wants to proceed. Plan on DVT prophylaxis includes TEDs, SCDs, and as pirin. Start therapy tomorrow. Nonweightbearing for at least 2 weeks postop. Job ID: [id number]
[2022-05-26 09:06] LABS: Estimated Average Glucose 108 mg/dl; Hemoglobin A1C 5.4 % (4.5-5.6)
[2022-05-26] MEDS ORDERED: HYDROmorphone INJ 2 MG/ML SYR/VIAL IV PRN (09:06)
[2022-05-26] MEDS ORDERED: ATROPINE SULFATE 0.1 MG/ML 10ML SYR IV PRN (09:06)
[2022-05-26] MEDS ORDERED: ONDANSETRON INJ 2 MG/ML 2 ML VIAL IV PRN ×2 (09:06→13:07)
[2022-05-26] MEDS ORDERED: ePHEDrine sulfate 50 MG/ML AMP IV PRN (09:06)
[2022-05-26] MEDS ORDERED: fentaNYL citrate 100 MCG/2 ML VIAL IV PRN (09:06)
--- NOTE | 2022-05-26 09:06 | Anesthesiology Consultation ---
Date of Service May 26, 2022 Assessment & Plan ASA ASA2 Proposed Anesthesia Anesthesia Type: General Regional Regional Laterality: Right Site: Popliteal and Adductor Canal Risk / Benefits Reviewed With: PT / POA / Parent / Guardian, Accepts Plan and Informed Consent Obtained History Surgery Operation Date: 05/26/22 06:45 Proposed Procedures p Open Reduction Internal Fixation Ankle(Right) - Aram Kumari MD Height/Weight Height: 5 ft 2 in Weight: 64.8 kg Allergies Allergy/AdvReac Type Severity Reaction Status Date / Time No Known Allergies Allergy Unverified 05/26/22 01:20 Medications Home Medications Medication Instructions Recorded Confirmed Last Taken albuterol sulfate 90 mcg/actuation 2 puff inhalation QID PRN 05/26/22 05/26/22 Unknown aerosol inhaler Shortness Of Breath Or Wheezing aspirin 81 mg tablet,delayed 81 mg PO DAILY 05/26/22 05/26/22 Unknown release clobetasol 0.05 % topical cream 1 applic topical DIRECTED PRN 05/26/22 05/26/22 Unknown flare ups diphenhydramine HCl 25 mg tablet 50 mg PO BID PRN Itching 05/26/22 05/26/22 Unknown (Benadryl Allergy) fluticasone propionate 50 2 spray intranasal DAILY PRN Nasal 05/26/22 05/26/22 Unknown mcg/actuation nasal Congestion spray,suspension (Flonase Allergy Relief) gabapentin 100 mg capsule 200 mg PO TID 05/26/22 05/26/22 Unknown hydrochlorothiazide 12.5 mg capsule 12.5 mg PO DAILY 05/26/22 05/26/22 Unknown lisinopril 5 mg tablet 5 mg PO DAILY 05/26/22 05/26/22 Unknown lorazepam 0.5 mg tablet 0.5 mg PO TID PRN Anxiety 05/26/22 05/26/22 Unknown naproxen sodium 220 mg tablet 220 mg PO BID PRN Pain 05/26/22 05/26/22 Unknown (Aleve) rosuvastatin 5 mg tablet 5 mg PO QAM 05/26/22 05/26/22 Unknown trazodone 50 mg tablet 50 - 100 mg PO HS PRN Sleep 05/26/22 05/26/22 Unknown zoledronic acid 5 mg/100 mL in 1 ea IV YEARLY 05/26/22 05/26/22 Unknown mannitol 5 %-water intravenous piggybck (Reclast) Active Medications Generic Name Dose Route Start Last Admin Trade Name Freq PRN Reason Stop Dose Admin Gabapentin 200 mg 05/26/22 09:00 05/26/22 07:24 Gabapentin 100 Mg Cap PO 06/25/22 08:59 200 mg TID [place] Administration Lactated Ringer's 1,000 mls @ 60 mls/hr 05/26/22 01:18 05/26/22 02:47 Lr IV 05/26/22 17:57 60 mls/hr .[id number] Administration Morphine Sulfate 4 mg 05/26/22 01:25 05/26/22 02:09 Morphine Sulfate 4 Mg/Ml 1 Ml Carp\Vial IV 06/09/22 01:24 4 mg Q4H PRN Administration Pain Rosuvastatin Calcium 5 mg 05/26/22 09:00 05/26/22 07:24 Rosuvastatin Calcium 5 Mg Tab PO 06/25/22 08:59 5 mg QAM [place] Administration Tramadol HCl 25 - 50 mg 05/26/22 01:25 05/26/22 07:07 Tramadol Hcl 50 Mg Tablet PO 06/25/22 01:24 50 mg Q4H PRN Administration Pain NPO Date Last Intake of Fluids: 05/26/22 Time Last Intake of Fluids: 00:00 Date Last Intake of Solids: 05/26/22 Time Last Intake of Solids: 00:00 Past Medical History Medical History HTN (hypertension) Stroke Trimalleolar fracture of right ankle Exercise / Class Metabolic Activity II 4-5 Yardwork/Stairs/Walk up hill Past Surgical History Surgical History H/O: hysterectomy Past Anesthesia History No Hx of Anesthesia Complications and No Family Hx of Anesthesia Complications History of PONV No Hx of PONV and No Hx of Motion Sickness Social History Smoking Status: Never smoker Hx Alcohol Use: Yes Alcohol type: beer alcohol intake frequency: holidays/special occasions only Hx Substance Use: No Review of Systems denies fever/cough/ colds/ chest pain/ SOB/ HELENA denies HELENA Physical Exam Vital Signs Last Vital Signs Temp 36.8 C 05/26/22 07:28 Pulse 83 05/26/22 07:28 Resp 20 05/26/22 07:28 BP 123/79 05/26/22 07:28 Pulse Ox 96 05/26/22 07:28 O2 Del Method 05/26/22 07:28 O2 Flow Rate 2 05/26/22 00:29 ENMT Mouth: + dentition abnormality (multiple missing); no TMJ abnormality Thyromental Distance: > or= 3.5 Finger Breadths Mallampati Class: IV Neck neck extension not limited Respiratory normal respiratory effort; no respiratory distress Auscultation: lungs clear to auscultation bilaterally Cardiovascular Rate/Rhythm: regular rate and regular rhythm Neurologic moves all extremities Psychiatric Orientation: alert and oriented x 3 Testing Laboratory Results 05/26/22 06:59 05/26/22 06:59
--- NOTE | 2022-05-26 09:16 | XRay Report ---
XR ankle RT 2V CLINICAL HISTORY: ankle pain TECHNIQUE: 2 views of the right ankle were obtained. Comparison: None available at the time of this dictation. FINDINGS: Trimalleolar fractures are seen. There is widening of the ankle mortise. Soft tissue swelling is seen about the ankle. IMPRESSION: Trimalleolar fracture with widening of the ankle mortise and associated soft tissue swelling. ACT 112: Negative or not required by law. Electronically signed by: Kenan Monte M.D. 05/26/2022 9:15 AM
--- NOTE | 2022-05-26 09:17 | Fluoroscopy Report ---
FL ankle RT 2V CLINICAL HISTORY: CLOSED REDUCTION RIGHT ANKLE TECHNIQUE: 2 views were obtained with the C-arm in the OR with the above procedure. Total fluoroscopy time was 7 seconds. Comparison: None available at the time of this dictation. FINDINGS/IMPRESSION: Intraoperative images were obtained of closed reduction of the right ankle fract ure. Please correlate with intraoperative fluoroscopy and operative report. ACT 112: Negative or not required by law. Electronically signed by: Kenan Monte M.D. 05/26/2022 9:16 AM
[2022-05-26] MEDS ORDERED: EPINEPHrine INJ 1 MG/ML AMP ONE (09:18)
--- NOTE | 2022-05-26 09:18 | XRay Report ---
XR ankle RT min 3V routine CLINICAL HISTORY: post reduction TECHNIQUE: 3 views of the right ankle were obtained. Comparison: Comparison is made to ankle radiograph 05/25/2022 FINDINGS: Following closed reduction, there is interval significant improvement in alignment of the fracture fr agments. The ankle mortise is only minimally widened. A overlying cast limits fine bony detail. Soft tissue swelling is seen about the ankle. IMPRESSION: Following closed reduction, significant improvement of alignment of fracture fragments. Associated so ft tissue swelling is seen. ACT 112: Negative or not required by law. Electronically signed by: Kenan Monte M.D. 05/26/2022 9:17 AM
--- NOTE | 2022-05-26 09:22 | XRay Report ---
XR chest 1V portable CLINICAL HISTORY: preop, hx copd TECHNIQUE: Single frontal radiograph of the chest was obtained. Comparison: None available at the time of this dictation. FINDINGS: No lines and tubes are seen. Cardiomediastinal silhouette is mildly prominent. Biapical scarring is s een. No evidence of pleural effusion or pneumothorax. IMPRESSION: No acute chest disease. ACT 112: Negative or not required by law. Electronically signed by: Kenan Monte M.D. 05/26/2022 9:20 AM
--- NOTE | 2022-05-26 09:23 | CT Scan Report ---
CT ankle RT wo con CLINICAL HISTORY: RIGHT ANKLE FX TECHNIQUE: Multidetector row helical CT of the right ankle was performed without intravenous contrast . Coronal and sagittal reformations were obtained. Automated dose lowering techniques and/or adjustme nt according to patient size were utilized for this examination. CT DOSE: 564.34 mGy.cm Comparison: Comparison is made to right ankle radiographs 06/05/2022 and 06/04/2022 FINDINGS: Comminuted trimalleolar fracture is seen. The bones of the foot appear intact. The ankle joint is now in anatomic alignment. Soft tissue swelling is seen about the ankle. IMPRESSION: Trimalleolar fracture with surrounding soft tissue swelling. Following closed reduction, the fracture fragments and ankle joint are in near-anatomic alignment. ACT 112: Negative or not required by law. Electronically signed by: Kenan Monte M.D. 05/26/2022 9:21 AM
[2022-05-26] MEDS ORDERED: ceFAZolin 2000MG 2,000 MG/15 ML SYR IV ONE (10:03)
--- NOTE | 2022-05-26 10:58 | Fluoroscopy Report ---
FL ankle RT min 3V RTN CLINICAL HISTORY: ORIF RT ANKLE TECHNIQUE: 4 views were obtained with the C-arm in the OR with the above procedure. Total fluoroscopy time was 13 seconds. Comparison: Comparison is made to CT ankle 05/26/2022 FINDINGS/IMPRESSION: Intraoperative images were obtained of both reduction internal fixation of the r ight ankle. Please correlate with intraoperative fluoroscopy and operative report. ACT 112: Negative or not required by law. Electronically signed by: Kenan Monte M.D. 05/26/2022 10:56 AM
--- NOTE | 2022-05-26 11:35 | Operative Report ---
PG Post Operative Report Pre & Post Diagnosis Operation Date: 05/26/22 06:45 Pre-Op Diagnosis: Right ankle fracture Post-Op Diagnosis: Right ankle fracture I identified the patient and participated in the time-out.: Yes Procedure Operation Date: 05/26/22 06:45 Actual Procedures p Open Reduction Internal Fixation Right Ankle(Right) - Aram Kumari MD Surgeon Aram Kumari MD [employer] Administrator Hector Allen PA-C Estimated Blood Loss 30 Findings Consistent with Post-Op Diagnosis Specimens None. Anesthesia Type General Regional Complications none Disposition Accompanied Patient To Recovery: No Indications Patient is 61-year-old female who was sustained injury to her right ankle last evening. She tripped over her dog and had the cute onset of pain and deformity to her ankle. She brought to emergency room where x-rays showed a very unstable fracture dislocation of the ankle. She underwent a closed reduction. Patient decayed for surgical management. Description of Procedure Operative implants consist of: Medial side implants consist of: 1. 4.0 partially-threaded/long threaded cannulated cancellous screws x2 with 2 washers. Lateral side implants consisted of: 1. Synthes 6-hole shaft right distal fibular locking plate. 2. 4.0 partially-threaded cancellous lag screw x1. 3. 3.5 fully threaded cortical screws x4. 4. 2.7 mm locking screws x4. The patient was taken the operating, identified, placed on the operating table supine position protectors were properly padded. IV antibiotics arrived by anesthesia team. A general anesthetic was implemented. A right thigh tent was then placed. The right lower extremity splint was removed. The right leg and ankle were then and foot were then scrubbed with Hibiclens, prepped with ChloraPrep and draped in usual sterile fashion. The right leg was elevated exsanguinated with use of an Esmarch and the tourniquet was set at 300 mmHg. Attention was first drawn to the medial side. An oblique incision was made over the medial malleolus fracture. Sharp dissection was carried through the subcutaneous tissues directly down the fracture site. We try to minimize any dissection due to the tenuous nature of her soft tissue envelope. The fracture was easily identified. I irrigated this out. I reduced this and held it reduced and placed 2 wires across the fracture site. Position was verified fluoroscopically and then it to a 4.0 cannulated partially-threaded/long threaded cancellous screws with washers were placed. Despite excellent fixation medially. Attention drawn laterally. Direct lateral approach of the fibula was then performed through a longitudinal incision. Sharp dissection Through subcutaneous tissue directly down the fracture. There is quite a bit of comminution of the fracture. It was easily reducible. I held it reduced and placed a single lag screw from anterior to posterior. I then contoured a distal fibular locking plate to the lateral aspect of the fibula. Fixed proximally with four 3.5 fully threaded cortical screws and distally with for a 2.7 locking screws. I did over contoured this bit so that they would applied lateral compression on snugging plate down. Some final x-rays were obtained. I stressed the ankle and there was no instability. Attention drawn toward closing. The wounds irrigated cosigns with normal saline. I did inject locally with 30 cc of half percent Marcaine with epinephrine. The fascia over the fibular plate was closed with 2-0 Vicryl suture in a [id number] fashion. The tourniquet was let down for turn time 55 minutes. Hemostasis assured use electrocautery. I then irrigated both wounds. We closed the subcutaneous tissues with 2-0 Vicryl suture in buried interrupted fashion skin was closed with 3-0 nylon suture in simple fashion. Leg was then cleaned and dried and a sterile dressing composed of Xeroform and 4 x 4's and cast padding were applied. I then applied a very well molded and padded the posterior and stirrup splint. The patient was then brought Francisco incision transferred to the recovery room in stable condition. Patient tolerated procedure well no complications. Hector Allen, my physician offset assistant press operator, was present for the entire procedure. His assistance was required for proper patient positioning, prepping and draping, surgical exposure, retraction, performing technical details the operation, placement of the hardware, closure of the incision site and placement of sterile bandage. I attest to the content of the Intraoperative Record and any orders documented therein. Any exceptions are noted below.
--- NOTE | 2022-05-26 12:09 | Anesthesiology Progress Note ---
Date of Service May 26, 2022 Anesthesia Post Procedure Vital Signs Vital Signs: Temp Pulse Pulse Pulse Resp BP BP 05/26/22 12:00 79 15 145/96 H 05/26/22 11:50 79 16 139/94 05/26/22 11:40 80 20 153/99 H 05/26/22 11:30 76 14 154/97 H 05/26/22 11:23 36.0 C L 86 12 147/90 H 05/26/22 07:28 36.8 C 83 20 123/79 05/26/22 02:36 105 H 05/26/22 03:04 36.7 C 114 H 20 151/84 H 05/26/22 02:39 36.7 C 114 H 20 151/84 H 05/26/22 02:39 05/26/22 02:02 106 H 18 121/87 05/26/22 01:30 105 H 18 121/87 05/26/22 01:00 103 H 26 H 139/81 05/26/22 00:54 110 H 17 128/81 05/26/22 00:29 109 H 20 162/90 H 05/25/22 23:46 125 H 26 H 193/100 H 05/25/22 23:26 36.6 C 110 H 20 193/110 H Pulse Ox Pulse Ox O2 Del Method O2 Del Method O2 Flow Rate 05/26/22 12:00 97 Room Air 05/26/22 11:50 95 Room Air 05/26/22 11:40 99 Oxymask 4 05/26/22 11:30 99 Oxymask 9 05/26/22 11:23 96 Oxymask 9 05/26/22 07:28 96 Room Air 05/26/22 02:36 05/26/22 03:04 96 Room Air 05/26/22 02:39 96 Room Air 05/26/22 02:39 96 Room Air 05/26/22 02:02 95 Room Air 05/26/22 01:30 94 Room Air 05/26/22 01:00 96 Room Air 05/26/22 00:54 96 Room Air 05/26/22 00:29 98 Nasal Cannula 2 05/25/22 23:46 97 Room Air 05/25/22 23:26 98 Room Air Pain Intensity Right Ankle: Pain Intensity: 6 Transfer of Care Handoff Completed per policy Notes Mental Status: alert / awake / arousable and participated in evaluation Patient Amnestic to Procedure: Yes Nausea / Vomiting: adequately controlled Pain: adequately controlled Airway Patency, RR, SpO2: stable & adequate BP & HR: stable & adequate Hydration State: stable & adequate Anesthetic Complications: no major complications apparent and Pt Satisfied with anesthetic care
[2022-05-26] MEDS ORDERED: METOCLOPRAMIDE HCL INJ 5 MG/ML 2 ML VIAL IV PRN (13:07)
[2022-05-26] MEDS ORDERED: ZOLEDRONIC ACID 5 MG/100 ML VIAL IV SCH (13:07)
[2022-05-26] MEDS ORDERED: ALUMINUM/MAGNESIUM SUSP 30 ML UDC PO PRN (13:07)
[2022-05-26] MEDS ORDERED: diphenhydrAMINE Capsule 25 MG CAP PO PRN ×2 (13:07→13:12)
[2022-05-26] MEDS ORDERED: HYDROmorphone INJ 0.5 MG/0.5 ML SYR IV PRN (13:07)
[2022-05-26] MEDS ORDERED: ALBUTEROL HFA 8 GM INHALER INH PRN (13:07)
[2022-05-26] MEDS ORDERED: FLUTICASONE PROPIONATE NA SPR 16 GM BTL NAE PRN (13:07)
[2022-05-26] MEDS ORDERED: bisacodyL 10 MG SUPP PR PRN (13:07)
[2022-05-26] MEDS ORDERED: NALOXONE HCL 0.4 MG/1 ML VIAL/CARP IV PRN (13:07)
[2022-05-26] MEDS ORDERED: MAGNESIUM HYDROXIDE SUSP 30 ML UDC PO PRN (13:07)
--- NOTE | 2022-05-26 13:23 | Electrocardiogram Report ---
Test Reason : Blood Pressure : / mmHG Vent. Rate : 091 BPM Atrial Rate : 091 BPM P-R Int : 168 ms QRS Dur : 088 ms QT Int : 368 ms P-R-T Axes : 051 009 023 degrees QTc Int : 452 ms Sinus rhythm with Premature atrial complexes Nonspecific ST abnormality Abnormal ECG When compared with ECG of 20-JUL-2013 20:48, Premature atrial complexes are now Present Vent. rate has increased BY 33 BPM Non-specific change in ST segment in Anterior leads T wave amplitude has decreased in Anterolateral leads QT has lengthened Confirmed by Prince Mario ([id number]) on 05/26/2022 1:23:05 PM Referred By: REFERRED SELF Confirmed By:Prince Mario
[2022-05-26] MEDS: SODIUM CHLORIDE 0.9% 1000ML 1,000 ML IV SCH (13:35)
[2022-05-26] MEDS: KETOROLAC 30 MG/ML VIAL IV SCH ×2 (13:36→18:03)
[2022-05-26] MEDS: ACETAMINOPHEN 500 MG TAB PO SCH ×2 (13:36→21:15)
--- NOTE | 2022-05-26 16:42 | Hospitalist Progress Note ---
Date of Service May 26, 2022 Assessment & Plan (1) Trimalleolar fracture of right ankle: Plan: Secondary to mechanical fall Right ankle xray showed Trimalleolar fracture with widening of the ankle mortise and associated soft tissue swelling. CT Lower extremity showed Trimalleolar fracture with surrounding soft tissue swelling. Following closed reduction, the fracture fragments and ankle joint are in near-anatomic alignment. S/P Open Reduction Internal Fixation Right Ankle(Right) performed today by Dr. Kumari No postop complication Continue incentive spirometry PT/OT eval Non weight bearing for 2 weeks as per ortho Monitor H/H Continue pain control fall precaution Continue monitor HTN BP elevated on admission mostly due to hospital setting Continue Lisinopril Continue monitor BP Hyperglycemia Hba1c 5.4 Continue monitor Hx CVA continue statin and aspirin Dyslipidemia Continue statin DVT px as per ortho Code status full code Admission and Anticipated Discharge Date Admission Date: May 26, 2022 Subjective Pt was seen and examined for postop follow up Lying in bed with no acute distress Pain is control Denies any chest pain, palpitation, dizziness and SOB Review of Systems Review of Systems: All systems reviewed & are unremarkable except as noted in Subjective Physical Exam Physical Exam: General- No acute distress Head- atraumatic Eyes- PERRL, EOMI, ENT- oropharynx clear Neck- supple, no JVD Lungs- clear to auscultation Heart- regular rhythm; no murmur Abdomen- normal bowel sounds, soft, nontender Extremities- no calf tenderness Neuro- alert, oriented x 3; PERRL, EOMI; no facial palsy; no dysarthria Skin- warm & dry Results & Data Results & [facility] ([facility]) Vital Signs (Past 12 Hours) Vital Signs Temp Pulse Pulse Resp BP BP Pulse Ox 05/26/22 16:39 36.4 C L 74 16 119/72 98 05/26/22 15:23 36.4 C L 74 16 132/84 98 05/26/22 13:39 36.4 C L 72 16 157/91 H 100 05/26/22 13:29 05/26/22 13:08 36.5 C 88 16 137/86 98 05/26/22 12:40 73 13 147/90 H 96 05/26/22 12:10 36.7 C 80 16 145/84 H 98 05/26/22 12:00 79 15 145/96 H 97 05/26/22 11:50 79 16 139/94 95 05/26/22 11:40 80 20 153/99 H 99 05/26/22 11:30 76 14 154/97 H 99 05/26/22 11:23 36.0 C L 86 12 147/90 H 96 05/26/22 07:28 36.8 C 83 20 123/79 96 O2 Del Method O2 Flow Rate 05/26/22 16:39 Room Air 05/26/22 15:23 Room Air 05/26/22 13:39 Nasal Cannula 2 05/26/22 13:29 Nasal Cannula 2 05/26/22 13:08 Nasal Cannula 2 05/26/22 12:40 Nasal Cannula 2 05/26/22 12:10 Room Air 05/26/22 12:00 Room Air 05/26/22 11:50 Room Air 05/26/22 11:40 Oxymask 4 05/26/22 11:30 Oxymask 9 05/26/22 11:23 Oxymask 9 05/26/22 07:28 Room Air (1) Trimalleolar fracture of right ankle Encounter type: initial encounter Fracture type: closed Qualified Code(s): S82.851A - Displaced trimalleolar fracture of right lower leg, initial encounter for closed fracture
[2022-05-26] MEDS: ceFAZolin 2000MG 2,000 MG/15 ML SYR IV SCH (18:03)
[2022-05-26] MEDS: DOCUSATE SODIUM 100 MG CAP PO SCH (20:12)
[2022-05-26] MEDS: ASPIRIN 81 MG ECTAB PO SCH (20:12)
[2022-05-26] MEDS ORDERED: SENNA 8.6 MG TAB PO SCH (21:00)
[2022-05-27] MEDS: KETOROLAC 30 MG/ML VIAL IV SCH ×2 (00:59→06:23)
[2022-05-27] MEDS: ceFAZolin 2000MG 2,000 MG/15 ML SYR IV SCH (00:59)
[2022-05-27] MEDS: SODIUM CHLORIDE 0.9% 1000ML 1,000 ML IV SCH (01:16)
[2022-05-27 06:16] LABS: Hematocrit (blood only) 35.2 % (34.1-44.9); Hemoglobin 11.9 g/dl (12.0-16.0); Mean Corpuscular Hemoglobin 30.4 pg (25.0-34.0); Mean Corpuscular Hgb Conc 33.8 g/dL (32.0-36.0); Mean Corpuscular Volume 89.8 fL (80.0-100.0); Mean Platelet Volume 10.3 fL (9.4-12.3); Platelet Count 207 K/uL (130-400); RDW Coefficient of Variation 12.9 % (11.5-14.5); RDW Standard Deviation 42.2 fL (36.4-46.3); Red Blood Count 3.92 M/uL (3.93-5.22); White Blood Count 7.67 K/ul (4.8-10.8)
[2022-05-27] MEDS: ACETAMINOPHEN 500 MG TAB PO SCH (06:22)
[2022-05-27] MEDS: ASPIRIN 81 MG ECTAB PO SCH (08:08)
[2022-05-27] MEDS: GABAPENTIN 100 MG CAP PO SCH (08:08)
[2022-05-27] MEDS: DOCUSATE SODIUM 100 MG CAP PO SCH (08:08)
--- NOTE | 2022-05-27 08:58 | Progress Notes ---
SUBJECTIVE: A 61-year-old female postoperative day 1 from ORIF of right ankle fracture dislocation. She is doing well this morning. Really not having much pain. No chest pain or shortness of breath. Not feeling dizzy or lightheaded. OBJECTIVE: VITAL SIGNS: Temperature 36.8. Vital signs are stable. GENERAL: Shows a pleasant middle-aged female. She is sitting up in bed, looks comfortable. EXTREMITIES: Examination of the right ankle reveals splint to be in place. Her toes are pink. She can slightly flex and extend her toes, limited by the splint. NEUROLOGIC: She is neurologically intact. LABORATORY DATA: Hemoglobin 11.9. Hematocrit 35.2. ASSESSMENT: A 61-year-old female postoperative day 1 from ORIF of right ankle fracture dislocation. She is doing well. Pain is controlled. She is neurologically intact. PLAN: 1. DVT prophylaxis includes thigh-high TEDs, SCDs, and a baby aspirin twice a day for 1 month. 2. PT/OT. She is nonweightbearing on this right leg for the next 2 weeks. 3. Pain control, doing okay with current pain regimen. 4. Disposition: Plan to discharge to home later today if she does okay in therapy. I need to see h er back two to three weeks out from surgery date. Any orthopedic questions can be directed to me at [phone]. Job ID: [id number]
[2022-05-27] MEDS ORDERED: lisinopril 5 MG TAB PO SCH (09:00)
[2022-05-27] MEDS ORDERED: MULTIVITAMIN TAB PO SCH (09:00)
[2022-05-27] MEDS ORDERED: hydroCHLOROthiazide 25 MG TAB PO SCH (09:00)
[2022-05-27] MEDS: ROSUVASTATIN CALCIUM 5 MG TAB PO SCH (09:41)
--- NOTE | 2022-05-27 10:51 | Hospitalist Progress Note ---
Date of Service May 27, 2022 Assessment & Plan (1) Trimalleolar fracture of right ankle: Plan: Secondary to mechanical fall Right ankle xray showed Trimalleolar fracture with widening of the ankle mortise and associated soft tissue swelling. CT Lower extremity showed Trimalleolar fracture with surrounding soft tissue swelling. Following closed reduction, the fracture fragments and ankle joint are in near-anatomic alignment. S/P Open Reduction Internal Fixation Right Ankle(Right) performed on 05/26/[address] Kumari No postop complication Continue incentive spirometry PT/OT eval Non weight bearing for 2 weeks as per ortho hemoglobin stable Continue pain control fall precaution Continue monitor HTN BP elevated on admission mostly due to hospital setting Continue Lisinopril Continue monitor BP Hyperglycemia Hba1c 5.4 Continue monitor Hx CVA continue statin and aspirin Dyslipidemia Continue statin DVT px as per ortho Code status full code Admission and Anticipated Discharge Date Admission Date: May 26, 2022 Subjective Pt was seen and examined for postop follow up Sitting in chair getting ready to discharge she said that she is not having any pain Denies any chest pain, palpitation, dizziness and SOB Review of Systems Review of Systems: All systems reviewed & are unremarkable except as noted in Subjective Physical Exam Physical Exam: General- No acute distress Head- atraumatic Eyes- PERRL, EOMI, ENT- oropharynx clear Neck- supple, no JVD Lungs- clear to auscultation Heart- regular rhythm; no murmur Abdomen- normal bowel sounds, soft, nontender Extremities- no calf tenderness Neuro- alert, oriented x 3; PERRL, EOMI; no facial palsy; no dysarthria Skin- warm & dry Results & Data Results & Data ([facility]) Vital Signs (Past 12 Hours) Vital Signs Temp Pulse Resp BP Pulse Ox O2 Del Method 05/27/22 07:54 36.8 C 66 18 136/84 96 Room Air 05/27/22 01:00 EST 36.6 C 65 16 116/75 95 Room Air (1) Trimalleolar fracture of right ankle Encounter type: initial encounter Fracture type: closed Qualified Code(s): S82.851A - Displaced trimalleolar fracture of right lower leg, initial encounter for closed fracture
--- NOTE | 2022-05-28 09:28 | Discharge Summary ---
Date of Service May 27, 2022 Admission HPI Per Admitting Provider History obtained from patient, family, and records. Medical history significant for CVA (2008), COPD, hypertension, history of DVT as per records, anxiety/mood disorder, past tobacco abuse. Last night, patient was pulled by her daughter's dogs while she was walking them. Patient lost her balance falling on her right leg. Patient heard something crack. Excruciating right ankle pain and trouble getting up. No head trauma. No chest pain, no SOB, no LOC, no syncope. Patient brought to the ER by family for evaluation. Unsuccessful closed reduction of right ankle fracture at the ER. SBP 190s upon arrival at the ER. Medical History as above Surgical History : Laparoscopic inguinal hernia repair, cataract surgery, RITA, umbilical hernia repair Family History : DM, heart disease Personal/Social history : Past tobacco abuse, occasional EtOH intake, [employer] Admission Exam Per Admitting Provider GENERAL: Slightly uncomfortable, no respiratory distress SKIN: Normal color, warm HEENT: [place]isman palpebral conjunctivae, no ptosis, dry buccal mucosa NECK : Supple, no tenderness CHEST : Decreased breath sounds , no tenderness HEART : Tachycardic, no obvious murmurs ABDOMEN: Some distention, nontender EXTREMITIES : RLE splint, minimal LE swelling, no LLE tenderness NEUROLOGIC : Coherent, no facial asymmetry, no other gross focality Principal Diagnosis Secondary to mechanical fall Hypertension Hyperglycemia Discharge Exam General- No acute distress Head- atraumatic Eyes- PERRL, EOMI, ENT- oropharynx clear Neck- supple, no JVD Lungs- clear to auscultation Heart- regular rhythm; no murmur Abdomen- normal bowel sounds, soft, nontender Extremities- no calf tenderness Neuro- alert, oriented x 3; PERRL, EOMI; no facial palsy; no dysarthria Skin- warm & dry Discharge Data Allergies Allergy/AdvReac Type Severity Reaction Status Date / Time No Known Allergies Allergy Unverified 05/26/22 01:20 Consultations 05/26/22 01:16 ED Decision to Admit Stat Procedures Performed Operation Date: 05/26/22 06:45 Actual Procedures p Open Reduction Internal Fixation Right Ankle(Right) - Aram Kumari MD Ordered Studies 05/26/22 FL ankle RT 2V Routine FL ankle RT min 3V RTN Routine 05/26/22 00:56 CT ankle RT wo con Urgent 05/26/22 09:06 US - OR guided needle placemen Routine Laboratory Results WBC 7.67 K/ul (4.8-10.8) 05/27/22 05:39 RBC 3.92 M/uL (3.93-5.22) L 05/27/22 05:39 Hgb 11.9 g/dl (12.0-16.0) L 05/27/22 05:39 Hct 35.2 % (34.1-44.9) 05/27/22 05:39 MCV 89.8 fL (80.0-100.0) 05/27/22 05:39 MCH 30.4 pg (25.0-34.0) 05/27/22 05:39 MCHC 33.8 g/dL (32.0-36.0) 05/27/22 05:39 RDW Std Deviation 42.2 fL (36.4-46.3) 05/27/22 05:39 RDW Coeff of Sampson 12.9 % (11.5-14.5) 05/27/22 05:39 Plt Count 207 K/uL (130-400) 05/27/22 05:39 MPV 10.3 fL (9.4-12.3) 05/27/22 05:39 Immature Gran % (Auto) 0.4 % 05/26/22 06:59 Neut % (Auto) 68.9 % 05/26/22 06:59 Lymph % (Auto) 21.2 % 05/26/22 06:59 Garfield % (Auto) 9.0 % 05/26/22 06:59 Eos % (Auto) 0.2 % 05/26/22 06:59 Baso % (Auto) 0.3 % 05/26/22 06:59 Neut # (Auto) 7.99 K/uL (1.4-6.5) H 05/26/22 06:59 Lymph # (Auto) 2.46 K/uL (1.2-3.4) 05/26/22 06:59 Garfield # (Auto) 1.04 K/uL (0.24-0.82) H 05/26/22 06:59 Eos # (Auto) 0.02 K/uL (0-0.50) 05/26/22 06:59 Baso # (Auto) 0.04 K/uL (0-0.2) 05/26/22 06:59 Immature Gran # (Auto) 0.05 K/uL (0.00-0.02) H 05/26/22 06:59 Sodium 138 mmol/L (136-145) 05/26/22 06:59 Potassium 4.0 mmol/L (3.5-5.1) 05/26/22 06:59 Chloride 108 mmol/L (98-107) H 05/26/22 06:59 Carbon Dioxide 25 mmol/L (21-32) 05/26/22 06:59 Anion Gap 5 (3-11) 05/26/22 06:59 BUN 19 mg/dl (6-23) 05/26/22 06:59 Creatinine 0.60 mg/dl (0.6-1.2) 05/26/22 06:59 Est Cr Clr Drug Dosing 84.8 ml/min 05/26/22 06:59 Est GFR ( Amer) 112.4 ml/min 05/26/22 06:59 Est GFR (Non-Af Amer) 97.0 ml/min 05/26/22 06:59 BUN/Creatinine Ratio 31.7 (10-20) H 05/26/22 06:59 Glucose 110 mg/dl (70-99(Fasting)) H 05/26/22 06:59 Estimat Average Glucose 108 mg/dl 05/26/22 06:59 Hemoglobin A1c 5.4 % (4.5-5.6) 05/26/22 06:59 Calcium 8.8 mg/dl (8.5-10.1) 05/26/22 06:59 Magnesium 1.8 mg/dl (1.7-2.4) 05/25/22 23:41 Total Bilirubin 0.4 mg/dl (0.2-1.0) 05/25/22 23:41 AST 24 U/L (13-39) 05/25/22 23:41 ALT 20 U/L (7-52) 05/25/22 23:41 Alkaline Phosphatase 80 U/L (34-104) 05/25/22 23:41 Total Protein 7.2 gm/dl (6.0-8.3) 05/25/22 23:41 Albumin 4.8 gm/dl (3.4-5.0) 05/25/22 23:41 Globulin 2.4 gm/dl (2.5-4.0) L 05/25/22 23:41 Albumin/Globulin Ratio 2.0 (0.9-2) 05/25/22 23:41 Procalcitonin < 0.05 ng/ml (0-0.5) 05/25/22 23:41 TSH 1.543 uIu/ml (0.300-4.500) 05/25/22 23:41 SARS-CoV-2, RNA, NAAT NEGATIVE (NEGATIVE) 05/26/22 00:[address] 05/26/22 00:56 CT ankle RT wo con CLINICAL HISTORY: RIGHT ANKLE FX TECHNIQUE: Multidetector row helical CT of the right ankle was performed without intravenous contrast. Coronal and sagittal reformations were obtained. Automated dose lowering techniques and/or adjustment according to patient size were utilized for this examination. CT DOSE: 564.34 mGy.cm Comparison: Comparison is made to right ankle radiographs 06/05/2022 and 06/04/2022 FINDINGS: Comminuted trimalleolar fracture is seen. The bones of the foot appear intact. The ankle joint is now in anatomic alignment. Soft tissue swelling is seen about the ankle. IMPRESSION: Trimalleolar fracture with surrounding soft tissue swelling. Following closed reduction, the fracture fragments and ankle joint are in near-anatomic alignment. ACT 112: Negative or not required by law. Electronically signed by: Kenan Monte M.D. 05/26/2022 9:21 AM Ankle X-Ray 05/26/22 01:05 XR ankle RT min 3V routine CLINICAL HISTORY: post reduction TECHNIQUE: 3 views of the right ankle were obtained. Comparison: Comparison is made to ankle radiograph 05/25/2022 FINDINGS: Following closed reduction, there is interval significant improvement in alignment of the fracture fragments. The ankle mortise is only minimally widened. A overlying cast limits fine bony detail. Soft tissue swelling is seen about the ankle. IMPRESSION: Following closed reduction, significant improvement of alignment of fracture fragments. Associated soft tissue swelling is seen. ACT 112: Negative or not required by law. Electronically signed by: Kenan Monte M.D. 05/26/2022 9:17 AM Chest X-Ray 05/26/22 01:25 XR chest 1V portable CLINICAL HISTORY: preop, hx copd TECHNIQUE: Single frontal radiograph of the chest was obtained. Comparison: None available at the time of this dictation. FINDINGS: No lines and tubes are seen. Cardiomediastinal silhouette is mildly prominent. Biapical scarring is seen. No evidence of pleural effusion or pneumothorax. IMPRESSION: No acute chest disease. ACT 112: Negative or not required by law. Electronically signed by: Kenan Monte M.D. 05/26/2022 9:20 AM Hospital Course (1) Trimalleolar fracture of right ankle: Secondary to mechanical fall Right ankle xray showed Trimalleolar fracture with widening of the ankle mortise and associated soft tissue swelling. CT Lower extremity showed Trimalleolar fracture with surrounding soft tissue swelling. Following closed reduction, the fracture fragments and ankle joint are in near-anatomic alignment. S/P Open Reduction Internal Fixation Right Ankle(Right) performed on 05/26/[address] Kumari No postop complication Continue incentive spirometry PT/OT eval Non weight bearing for 2 weeks as per ortho hemoglobin stable Continue pain control fall precaution Continue monitor HTN BP elevated on admission mostly due to hospital setting Continue Lisinopril Continue monitor BP Hyperglycemia Hba1c 5.4 Continue monitor Hx CVA continue statin and aspirin Dyslipidemia Continue statin DVT px as per ortho Code status full code Total Time Total Time Spent Total Time Spent (In Minutes): 35 minutes Discharge Plan Discharge Items Patient Disposition: Home - Self-Care Reason For Visit: R ANKLE FX, HTN URG Discharge Diagnosis: Right Ankle Fracture/Dislocation Condition on Discharge: Fair Activity: Per Instructions section Activity Comment: Non-weightbearing on right leg until return appointment Weightbearing: Right non-weightbearing Non-emergency contact: Surgeon Call non-emergency contact if: you have any medication questions Follow-up/Referrals: Aram Kumari MD [Physician] - (Orthopedic follow-up 2-3 weeks from surgery date) Crystal Rosa MD [Primary Care Provider] - Diet: Regular Addtl Attending Provider Instructions: Non-weightbearing left leg Keep splint and dressing clean, dry, and in place Keep all pressure off Heel Elevate right leg as much as possible Pending Studies at Discharge: No Stand-Alone Forms: My [employer], Smoking Cessation Medications and DC Order Prescriptions: New aspirin 81 mg Tablet,Delayed Release (Dr/Ec) 81 mg PO BID 30 Days Qty: 60 0RF Rx Instructions: Take to prevent blood clots. tramadol 50 mg Tablet 50 - 100 mg PO Q6H PRN (Reason: pain) Qty: 30 0RF Rx Instructions: Take as needed for Pain. Continued trazodone 50 mg tablet 50 - 100 mg PO HS PRN (Reason: Sleep) clobetasol 0.05 % cream 1 applic TOPICAL DIRECTED PRN (Reason: flare ups) aspirin 81 mg Tablet,Delayed Release (Dr/Ec) 81 mg PO DAILY lorazepam 0.5 mg tablet 0.5 mg PO TID PRN (Reason: Anxiety) diphenhydramine HCl [Benadryl Allergy] 25 mg Tablet 50 mg PO BID PRN (Reason: Itching) naproxen sodium [Aleve] 220 mg Tablet 220 mg PO BID PRN (Reason: Pain) hydrochlorothiazide 12.5 mg capsule 12.5 mg PO DAILY lisinopril 5 mg tablet 5 mg PO DAILY gabapentin 100 mg capsule 200 mg PO TID albuterol sulfate 90 mcg/actuation Hfa Aerosol Inhaler 2 puff INHALATION QID PRN (Reason: Shortness Of Breath Or Wheezing) fluticasone propionate [Flonase Allergy Relief] 50 mcg/actuation [place],Suspension 2 spray INTRANASAL DAILY PRN (Reason: Nasal Congestion) Rx Instructions: administer into each nostril rosuvastatin 5 mg tablet 5 mg PO QAM zoledronic [id number] [Reclast] 5 mg/100 mL Piggyback 1 ea IV YEARLY Discharge Orders: Discharge Order (Routine); Ordered 05/27/22 Ordered By: Aram Kumari Admission Data Admit Date/Time: 05/26/22 01:22 Attending Provider: Aram Kumari Admit Provider: Aram Kumari Primary Care Provider: Crystal Rosa Other Providers: Jas Valdez ; Mana Cervantes Other Interventions: Discharge Summary Assessment (RN) Last Done: 05/27/22 10:14
== END 2022-05-27 10:57 | disposition home or self-care (01) | DRG 494 ==
LOC: ED 23:18 → 2N 05-26 01:22 → INTOOBSV 05-26 01:22 → 2N 05-26 02:16 → 3E 05-26 11:21